=== PATIENT | male | born 1975 | race Caucasian/White ===

== ENCOUNTER 2017-04-18 15:06 | Emergency (ER) | payer MEDICAID ==
[~2017-04-18] VITALS: Ht 182.9 cm; Wt 95.3 kg
[2017-04-18] MEDS ORDERED: AMOX TR-K CLV1 EAC2 ORAL (15:20)
[2017-04-18 15:22] VITALS: BP 123/75
--- NOTE | 2017-04-18 15:52 | Diagnostic Imaging Report ---
Indication: Chest pain Technique: Single portable AP view of the chest. Findings: Comparison: None. The bones and extra pulmonary soft tissues, cardiomediastinal silhouette, pulmonary vasculature and parenchyma, and pleural surfaces are unremarkable. IMPRESSION: Negative portable AP chest.
[2017-04-18 16:23] LABS: TROPONIN I < 0.30 ng/mL (<=0.30)
[2017-04-18 16:26] LABS: ALANINE AMINOTRANSFERASE 17 U/L (3-41); ALBUMIN/GLOBULIN RATIO 1.5 (1.0-2.7); ANION GAP 21 (5-15); ASPARTATE AMINO TRANSFERASE 23 U/L (5-40); CALCIUM 9.4 mg/dL (8.6-10.2); CARBON DIOXIDE 19 mEQ/L (20-30); CHLORIDE 97 mEQ/L (98-107); CREATININE 1.1 mg/dL (0.7-1.2); GLOMERULAR FILTRATION RATE > 60 mL/min (>60); HEMOLYSIS 22; SODIUM 137 mEQ/L (135-145); TOTAL PROTEIN 7.4 g/dL (6.6-8.7)
[2017-04-18 16:34] LABS: BASOPHILS % (AUTO) 1.8 % (0.0-2.0); EOSINOPHILS % (AUTO) 2.6 % (0.0-3.0); MEAN CORPUSCULAR HEMOGLOBIN 30.6 PG (27.0-31.0); MEAN CORPUSCULAR HGB CONC 34.1 G/DL (32.0-36.0); MEAN CORPUSCULAR VOLUME 90 FL (80-99); MEAN PLATELET VOLUME 5.7 FL (6.5-10.1); MONOCYTES % (AUTO) 4.1 % (1.0-10.0); NEUTROPHILS % (AUTO) 41.5 % (45.0-75.0); PLATELET COUNT 244 K/UL (150-450); RED BLOOD COUNT 5.11 M/UL (4.70-6.10); RED CELL DISTRIBUTION WIDTH 10.8 % (11.6-14.8); WHITE BLOOD COUNT 5.8 K/UL (4.8-10.8)
[2017-04-18 16:36] LABS: CKMB < 1.5 ng/mL (< 6.7)
[2017-04-18 17:32] VITALS: BP 122/73
[2017-04-18 17:38] VITALS: BP 122/73
--- NOTE | 2017-04-18 18:51 | Emergency Room Report ---
History of Present Illness General Chief Complaint: Chest Pain Source: Patient Present Illness HPI 42-year-old male presents to ED for evaluation. Patient states that he is here because he had abnormal EKG done at a clinic today. EKG showed "abnormal conduction delay". patient was sent to ER for further evaluation. Patient states she's been treated recently for bronchitis/pharyngitis. Was prescribed antibiotics. States that he was feeling slightly worse today she went to the clinic for followup. Patient had EKG done which showed the findings. Patient states she has no chest pain or shortness of breath. Denies any dizziness or weakness. Denies any cardiac history. Denies drug use. No other aggravating or relieving factors. Denies any other associated symptoms Allergies: Coded Allergies: No Known Allergies (Unverified , 04/18/17) Patient History Past Medical History: none Past Surgical History: none Pertinent Family History: none Social History: Denies: alcohol use, drug use, smoking Immunizations: UTD Reviewed Nursing Documentation: PMH: Agreed, PSxH: Agreed Review of Systems All Other Systems: negative except mentioned in HPI Physical Exam Vital Signs Date Time Temp Pulse Resp B/P Pulse Ox O2 Delivery O2 Flow Rate FiO2 04/18/17 15:13 98.1 64 16 120/87 95 Room Air Sp02 EP Interpretation: reviewed, normal General Appearance: no apparent distress, alert, GCS 15, non-toxic Head: normocephalic, atraumatic Eyes: bilateral eye PERRL, bilateral eye normal inspection ENT: hearing grossly normal, normal pharynx, no angioedema, normal voice Neck: full range of motion, supple/symm/no masses Respiratory: chest non-tender, lungs clear, normal breath sounds, speaking full sentences Cardiovascular #1: regular rate, rhythm, no edema Cardiovascular #2: 2+ carotid (R), 2+ carotid (L), 2+ radial (R), 2+ radial (L) , 2+ dorsalis pedis (R), 2+ dorsalis pedis (L) Gastrointestinal: normal bowel sounds, non tender, soft, non-distended, no guarding, no rebound Rectal: deferred Genitourinary: normal inspection, no CVA tenderness Musculoskeletal: back normal, gait/station normal, normal range of motion, non- tender Neurologic: alert, oriented x3, responsive, motor strength/tone normal, sensory intact, speech normal Psychiatric: judgement/insight normal, memory normal, mood/affect normal, no suicidal/homicidal ideation Reflexes: 3+ bicep (R), 3+ bicep (L), 3+ tricep (R), 3+ tricep (L), 3+ knee (R) , 3+ knee (L) Skin: normal color, no rash, warm/dry, well hydrated Lymphatic: no adenopathy Medical Decision Making Diagnostic Impression: Primary Impression: Abnormal finding on EKG ER Course Hospital Course 42-year-old M presents ED for evaluation of abnormal EKG done at clinic today. No complaints Differential diagnoses include: arryhtmia, CHF, ACS/NH Clinical course Patient placed on stretcher. After initial history and physical I ordered labs , EKG, chest x-ray. labs reviewed- all electrolytes normal, troponins negative, no leukocytosis, hemoglobin/hematocrit stable, Utox + THC EKG - sinus bradycardia, no ischemic changes Chest x-ray-no cardiomegaly, no rib fracture, no pneumothorax, no acute process Reviewed EKG from the clinic. While reads "abnormal conduction" there is no evidence of such. There is no AV block. No widening QRS, no QT prolongation. No ST elevations. Our EKG looks the same Remainder of workup is negative. Ressurance given to the patient. however I recommend followup with PMD I. I feel this is a highly complex case requiring extensive working including EKG/Rhythm strip, Xray/CT/US, Blood/urine lab work, repeat exams while in ED, and administration of strong opiates/narcotics for pain control, admission to hospital or close patient follow up. Diagnosis - abnormal finding on EKG. Stable and discharged to home. Instructed to followup with PMD. Return to ED if symptoms recur or worsen Labs Test 04/18/17 15:50 04/18/17 16:27 White Blood Count 5.8 K/UL (4.8-10.8) Red Blood Count 5.11 M/UL (4.70-6.10) Hemoglobin 15.6 G/DL (14.2-18.0) Hematocrit 45.8 % (42.0-52.0) Mean Corpuscular Volume 90 FL (80-99) Mean Corpuscular Hemoglobin 30.6 PG (27.0-31.0) Mean Corpuscular Hemoglobin Concent 34.1 G/DL (32.0-36.0) Red Cell Distribution Width 10.8 % (11.6-14.8) Platelet Count 244 K/UL (150-450) Mean Platelet Volume 5.7 FL (6.5-10.1) Neutrophils (%) (Auto) 41.5 % (45.0-75.0) Lymphocytes (%) (Auto) 50.0 % (20.0-45.0) Monocytes (%) (Auto) 4.1 % (1.0-10.0) Eosinophils (%) (Auto) 2.6 % (0.0-3.0) Basophils (%) (Auto) 1.8 % (0.0-2.0) Sodium Level 137 mEQ/L (135-145) Potassium Level 4.0 mEQ/L (3.4-4.9) Chloride Level 97 mEQ/L (98-107) Carbon Dioxide Level 19 mEQ/L (20-30) Anion Gap 21 (5-15) Blood Urea Nitrogen 15 mg/dL (7-23) Creatinine 1.1 mg/dL (0.7-1.2) Estimat Glomerular Filtration Rate > 60 mL/min (>60) Glucose Level 92 mg/dL (74-106) Calcium Level 9.4 mg/dL (8.6-10.2) Total Bilirubin 0.5 mg/dL (0.0-1.2) Aspartate Amino Transf (AST/SGOT) 23 U/L (5-40) Alanine Aminotransferase (ALT/SGPT) 17 U/L (3-41) Alkaline Phosphatase 55 U/L (40-129) Total Creatine Kinase 91 U/L (38-174) Creatine Kinase MB < 1.5 ng/mL (< 6.7) Creatine Kinase MB Relative Index 1.6 Troponin I < 0.30 ng/mL (<=0.30) Pro-B-Type Natriuretic Peptide 7 pg/mL (0-125) Total Protein 7.4 g/dL (6.6-8.7) Albumin 4.5 g/dL (3.5-5.2) Globulin 2.9 g/dL Albumin/Globulin Ratio 1.5 (1.0-2.7) Urine Opiates Screen Negative (NEGATIVE) Urine Barbiturates Screen Negative (NEGATIVE) Phencyclidine (PCP) Screen Negative (NEGATIVE) Urine Amphetamines Screen Negative (NEGATIVE) Urine Benzodiazepines Screen Negative (NEGATIVE) Urine Cocaine Screen Negative (NEGATIVE) Urine Marijuana (THC) Screen Positive (NEGATIVE) EKG Diagnostic Results Rate: bradycardiac Rhythm: NSR ST Segments: no acute changes ASA given to the pt in ED: No Rhythm Strip Diag. Results EP Interpretation: yes Rhythm: NSR, no PVC's, no ectopy Chest X-Ray Diagnostic Results Chest X-Ray Ordered: Yes # of Views/Limited/Complete: 1 View Interpretation: no consolidation, no effusion, no pneumothorax, no acute cardiopulmonary disease Indication: Other - abnormal ekg Impression: No acute disease Date Electronically Signed: Apr 18, 2017 Time Electronically Signed: 18:48 Interpreting ER Physician: Sajan Kong MD Last Vital Signs Date Time Temp Pulse Resp B/P Pulse Ox O2 Delivery O2 Flow Rate FiO2 04/18/17 17:38 98.0 60 16 122/73 99 Room Air Status: improved Disposition: HOME, SELF-CARE Condition: Stable Patient Instructions: Nonspecific Chest Pain SAJAN KONG M.D. Apr 18, 2017 18:51
== END 2017-04-18 17:38 | disposition home or self-care (01) ==
LOC: EMR 15:25
DX: R94.31 Abnormal electrocardiogram [ECG] [EKG] (principal)
CPT/HCPCS: 36415; 71010; 80053; 80300; 82550; 82553; 83880; 84484; 85025; 93005; 96360

== ENCOUNTER 2018-02-03 01:04 | Emergency (ER) | payer SELFPAY ==
[~2018-02-03] VITALS: Ht 182.9 cm; Wt 95.3 kg
[~2018-02-03 01:04] MED LIST: AMOX TR-K CLV1 EAC2 ORAL
[2018-02-03 01:15] VITALS: BP 133/65
[2018-02-03] MEDS ORDERED: LORazepam Inj 2mg/ml 1ml IM ONE (01:15)
--- NOTE | 2018-02-03 01:51 | Emergency Room Report ---
History of Present Illness General Chief Complaint: Substance Abuse Source: Patient Present Illness HPI Is a 42-year-old male brought in by EMS with chief complaint of anxiety and panic attack. He took 5 marijuana elbow was tonight and became very anxious. No suicidal thoughts or homicidal thought. Unable to get calm. Because he was not getting better he called 911. Allergies: Coded Allergies: No Known Allergies (Unverified , 04/18/17) Patient History Past Medical History: see triage record, old chart reviewed, psych hx - anxiety Past Surgical History: other Pertinent Family History: none Social History: Denies: smoking Immunizations: other Reviewed Nursing Documentation: PMH: Agreed; PSxH: Agreed Nursing Documentation-PMH History Of Psychiatric Problem: Yes - anxiety Review of Systems Eye: Denies: eye pain, blurred vision ENT: Denies: ear pain, nose congestion, throat swelling Respiratory: Denies: cough, shortness of breath Cardiovascular: Denies: chest pain, palpitations Gastrointestinal: Denies: abdominal pain, diarrhea, nausea, vomiting Musculoskeletal: Denies: back pain, joint pain Skin: Denies: rash Neurological: Denies: headache, numbness Endocrine: Denies: increased thirst, increased urine Hematologic/Lymphatic: Denies: easy bruising All Other Systems: negative except mentioned in HPI Physical Exam Vital Signs Date Time Temp Pulse Resp B/P (MAP) Pulse Ox O2 Delivery O2 Flow Rate FiO2 02/03/18 01:09 120 18 133/65 98 Room Air vitals with tachycardia Sp02 EP Interpretation: reviewed, normal General Appearance: well appearing, no apparent distress, alert Head: normocephalic, atraumatic Eyes: bilateral eye PERRL, bilateral eye EOMI ENT: hearing grossly normal, normal pharynx Neck: full range of motion, supple, no meningismus Respiratory: chest non-tender, lungs clear, normal breath sounds Cardiovascular #1: regular rate, rhythm, no murmur Gastrointestinal: normal bowel sounds, non tender, no mass, no organomegaly, no bruit, non-distended Musculoskeletal: back normal, gait/station normal, normal range of motion Neurologic: alert, oriented x3 Psychiatric: anxious - very jittery Skin: warm/dry Medical Decision Making Diagnostic Impression: Primary Impression: Panic attack Additional Impression: Marijuana abuse ER Course Patient presents with panic attack secondary to marijuana abuse. He came in with his daughter because there was no one also take care of her at home. He called his sister who came. Patient has full custody of his daughter. EMS placed the concern of substance overdose and because of the minor in his custody , they wanted to call CPS. Nursing staff will call CPS here. There is no trauma or any evidence of abuse to the child. patient felt better after Ativan. Last Vital Signs Date Time Temp Pulse Resp B/P (MAP) Pulse Ox O2 Delivery O2 Flow Rate FiO2 02/03/18 01:15 120 18 133/65 98 Room Air Status: improved Disposition: HOME, SELF-CARE Condition: Stable Patient Instructions: Cannabis Use Disorder Additional Instructions: Follow-up with your Dr. in 7 days. Return if worse. NOMI JAQUEZ M.D. Feb 03, 2018 01:51
[2018-02-03 01:59] VITALS: BP 120/82
[2018-02-03 02:00] VITALS: BP 120/82
== END 2018-02-03 02:00 | disposition home or self-care (01) ==
LOC: EDBD 01:04 → EMR 01:15
DX: F41.0 Panic disorder [episodic paroxysmal anxiety] (principal); F12.10 Cannabis abuse, uncomplicated
CPT/HCPCS: 96372; 99283